=== PATIENT | female | born 1940 | race Two or more races ===

== ENCOUNTER 2021-05-14 11:54 | Inpatient (IN) | payer OTHER ==
[~2021-05-14] VITALS: Ht 162.6 cm; Wt 131.5 kg
[2021-05-14] MEDS ORDERED: LANTUS SOL100 UNIT/1 (12:16)
[2021-05-14] MEDS ORDERED: ECOTRIN81 MG PO (12:16)
[2021-05-14] MEDS ORDERED: AVAPRO300 MG PO (12:16)
[2021-05-14] MEDS ORDERED: HUMALOG100 UNIT/2 (12:17)
[2021-05-14] MEDS ORDERED: OMEPRAZOLE40 MG (17:05)
[2021-05-14] MEDS ORDERED: MONTELUKAST SOD10 MG (17:05)
[2021-05-14] MEDS ORDERED: GABAPENTIN400 MG (17:05)
[2021-05-14] MEDS ORDERED: SUCRALFATE1 GM (17:05)
[2021-05-14] MEDS ORDERED: OPTIMAL D31250 MCG (17:06)
[2021-05-14] MEDS ORDERED: FAMOTIDINE40 MG (17:06)
== END 2021-05-20 10:36 | disposition expired | DRG 602 ==
LOC: ER 11:54 → OB/GYN 12:57 → ICU 12:57 → OB/GYN 14:56 → MEDJ 05-16 20:37 → ICU 05-17 09:05
PROVIDERS: ADMIT Internal Medicine; ATTEND Internal Medicine
PROC: 8E0ZXY6 Isolation (ICD-10-PCS; 2021-05-14)
PROC: 02HV33Z Insertion of Infusion Device into Superior Vena Cava, Percutaneous Approach (ICD-10-PCS; 2021-05-14)
PROC: B246ZZZ Ultrasonography of Right and Left Heart (ICD-10-PCS; principal; 2021-05-16)
PROC: 4A12X4Z Monitoring of Cardiac Electrical Activity, External Approach (ICD-10-PCS; 2021-05-16)
PROC: 3E0F7GC Introduction of Other Therapeutic Substance into Respiratory Tract, Via Natural or Artificial Opening (ICD-10-PCS; 2021-05-16)
PROC: 5A0945A Assistance with Respiratory Ventilation, 24-96 Consecutive Hours, High Flow/Velocity Cannula (ICD-10-PCS; 2021-05-17)
PROC: 0DH67UZ Insertion of Feeding Device into Stomach, Via Natural or Artificial Opening (ICD-10-PCS; 2021-05-17)
DX: L03.115 Cellulitis of right lower limb (principal); J96.01 Acute respiratory failure with hypoxia; G93.1 Anoxic brain damage, not elsewhere classified; Z68.42 Body mass index [BMI] 45.0-49.9, adult; E87.2 Acidosis; L97.818 Non-pressure chronic ulcer of other part of right lower leg with other specified severity; L97.828 Non-pressure chronic ulcer of other part of left lower leg with other specified severity; J81.1 Chronic pulmonary edema; N17.8 Other acute kidney failure; B96.4 Proteus (mirabilis) (morganii) as the cause of diseases classified elsewhere; B96.5 Pseudomonas (aeruginosa) (mallei) (pseudomallei) as the cause of diseases classified elsewhere; B95.2 Enterococcus as the cause of diseases classified elsewhere; B96.89 Other specified bacterial agents as the cause of diseases classified elsewhere; I11.0 Hypertensive heart disease with heart failure; I50.9 Heart failure, unspecified; Z79.4 Long term (current) use of insulin; G47.39 Other sleep apnea; E66.01 Morbid (severe) obesity due to excess calories; D64.89 Other specified anemias; Z20.822 Contact with and (suspected) exposure to COVID-19; E87.5 Hyperkalemia; K21.9 Gastro-esophageal reflux disease without esophagitis; Z74.01 Bed confinement status; Z95.4 Presence of other heart-valve replacement